=== PATIENT | male | born 1975 | race American Indian/Alaskan Native ===

== ENCOUNTER 2020-06-10 06:29 | Emergency (ER) | payer OTHER ==
--- NOTE | 2020-06-10 07:07 | XRay Report ---
CHEST 2 VIEWS, 06/10/2020 6:54 AM INDICATION: Shortness of breath COMPARISON: None FINDINGS: Support devices: None. Heart: The cardiac silhouette is normal in size. Lungs/pleura: The lungs are clear of focal airspace disease or significant pleural effusion. Additional findings: No significant acute abnormality. IMPRESSION: 1. No evidence of acute cardiopulmonary process. Signer Name: Vira Louis MD Signed: 06/10/2020 7:03 AM Workstation Name: [id number]
--- NOTE | 2020-06-10 08:17 | Emergency Department Report ---
Minor Respiratory - HPI Chief Complaint: Dyspnea/Respdistress Stated Complaint: JASMINE Time Seen by Provider: 06/10/20 08:16 Duration: Today Pain Location: Chest Severity: mild Minor Respiratory: Yes Able to Tolerate Fluids, Yes Shortness of Breath (x1 during night), No Rhinorrhea, No Sore Throat, No Ear Pain, No Cough (once in a while nothing new forhim), No Sick Contacts (none), No Hemoptysis, No Chest Pain, No Fever (no chills) Other History: Patient is a 44 -[place] male who comes to the emergency room tonight after waking up with abrupt shortness of breath. He does have HIV and he is on Genvoya. He denies fever chills or cough. He has been self isolating given the COVID-19 pandemic. He denies any chest pain. He denies any other medical histories. He states he has been nondetectable and follows with [facility] infectious disease. On triage heart rate was noted to be 110. On provider exam it was 90. Patient is nonill appearing. He is ambulatory taking p.o. He is well-developed well-nourished. Patient states that he thinks that he got overly concerned which spiraled into an anxiety attack. He states that h e does not want his HIV to come back and get him. And is concerned with the COVID-19. He has no known exposures. ED Review of Systems ROS: Stated complaint: JASMINE Other details as noted in HPI Comment: All other systems reviewed and negative ED Past Medical Hx - Past Medical History Previous Medical History?: Yes Hx HIV: Yes - Surgical History Past Surgical History?: No - Family History Family history: no significant - Social History Smoking Status: Never Smoker Substance Use Type: None Minor Respiratory Exam - Exam General: Vital signs noted. No distress. Alert and acting appropriately. HEENT: Yes Moist Mucous Membranes, No Pharyngeal Erythema, No Pharyngeal Exudates, No Rhinorrhea, No Conjuctival Injection, No Frontal Tenderness, No Maxillary Tenderness Ear: Neither TM Bulge, Neither TM Erythema, Neither EAC Pain, Neither EAC Discharge Neck: Yes Supple, No Adenopathy Lungs: Yes Good Air Exchange, No Wheezes, No Ronchi, No Stridor, No Cough, No Labored Respirations, No Retractions, No Use of Accessory Muscles, No Other Abnormal Lung Sounds Heart: Yes Regular (hr 90), No Murmur Abdomen: Yes Normal Bowel Sounds, No Tenderness, No Peritoneal Signs Skin: No Rash, No Edema Neurologic: Alert and oriented, no deficits. Musculoskeletal: Unremarkable. ED Medical Decision Making - Radiology Data Radiology results: report reviewed, image reviewed No acute process - Medical Decision Making Patient did get his flu shot this year. He is undetectable. He is compliant with his antivirals. He is compliant with ID follow-up. In fact he has an appointment on the . Vital Signs 06/10/20 06:34 Temperature 98.3 F Pulse Rate 111 H Respiratory 18 Rate Blood Pressure 162/81 O2 Sat by Pulse 98 Oximetry Heart rate 90 on provider exam. Patient denies any chest pain or shortness of breath. Denies fever or chills on exam in [facility]. Rest x-ray noted without any suggestion of Covid pneumonia or PCP or other infectious process. Patient has no fever. He has no hypotension. Patient already has a follow-up appointment with his ID physicians. Patient was educated on Covid prevention in the setting of HIV. Patient is being discharged home with instructions on diet, activity, Covid protections, HIV medications and follow-up. He verbalizes understanding. - Differential Diagnosis Rule out URI Critical care attestation.: If time is entered above; I have spent that time in minutes in the direct care of this critically ill patient, excluding procedure time. ED Disposition Clinical Impression: HIV (human immunodeficiency virus infection), Anxiety Disposition: [id number] TO HOME OR SELFCARE Is pt being admited?: No Does the pt Need Aspirin: No Condition: Stable Instructions: COVID-19: How to Protect Yourself and Others - [facility] Additional Instructions: Follow-up with your infectious disease doctor as we have discussed. Give them a call about immunization for COVID-19. Your next appointment take with your disc from today. If the wish to pursue rapid testing follow-up with [facility] care or one of the other urgent cares that have rapid testing available. Continue your HIV medications. [facility]errals: [facility] [Other] - 3-5 Days Time of Disposition: 08:25
[2020-06-10 08:28] VITALS: BP 162/81
== END 2020-06-10 10:04 | disposition home or self-care (01) ==
LOC: ED 06:29
DX: F41.9 Anxiety disorder, unspecified (principal); Z21 Asymptomatic human immunodeficiency virus [HIV] infection status
CPT/HCPCS: 71046; 99283